=== PATIENT | male | born 1985 | race American Indian/Alaskan Native ===

== ENCOUNTER 2018-03-30 17:56 | Emergency (ER) | payer SELFPAY ==
[2018-03-30 18:06] VITALS: BP 162/85
--- NOTE | 2018-03-30 20:55 | Emergency Department Report ---
ED Extremity Problem HPI - General Chief complaint: Extremity Injury, Lower Stated complaint: (L) LEG PAIN Time Seen by Provider: 03/30/18 20:24 Source: patient Mode of arrival: Ambulatory Limitations: No Limitations - History of Present Illness Initial comments: Patient reports that he has left leg pain and states that started in his buttocks and moved his left hamstring 2 days. He said this is going on for 2 years and it comes and goes. Denies any history of back injury or back pain. He said he feels like spasm. Pain is 10 out of 10 when it is there and intermittent. Denies any numbness or tingling. Denies any loss of bowel or bladder function. No medication taken anything over seen a doctor for the problem. MD Complaint: extremity pain Onset/Timin -: year(s) Location: left, lower extremity -: No myalgia, Yes arthralgia, No fever, No associated chest pain Radiation: none Severity scale (0 -10): 10 Quality: aching Consistency: intermittent Improves with: nothing Worsens with: nothing Associated Symptoms: arthralgias. denies: chest pain, shortness of breath, fever, myalgias, rash - Related Data Previous Rx's Medication Instructions Recorded Last Taken Type Fluconazole [Diflucan] 150 mg PO QDAY #2 tablet 04/24/13 Unknown Rx Hydrocodone Bit/Acetaminophen 1 each PO Q4-6H #10 tablet 04/24/13 Unknown Rx [Lortab 5-500 Tablet] Ibuprofen [Motrin] 800 mg PO TID PRN #25 tablet 04/24/13 Unknown Rx Sulfamethoxazole/Trimethoprim 1 each PO BID #28 tablet 04/24/13 Unknown Rx [Bactrim DS] Ibuprofen [Motrin] 800 mg PO Q8HR PRN #15 tablet 03/30/18 Unknown Rx Allergies Allergy/AdvReac Type Severity Reaction Status Date / Time No Known Allergies Allergy Verified 03/30/18 22:03 ED Review of Systems ROS: Stated complaint: (L) LEG PAIN Other details as noted in HPI Constitutional: denies: chills, fever Eyes: denies: eye pain, eye discharge Respiratory: denies: cough, shortness of breath, SOB with exertion, SOB at rest , stridor, wheezing Cardiovascular: denies: chest pain, palpitations, edema, syncope Gastrointestinal: denies: abdominal pain, nausea, vomiting, diarrhea Genitourinary: denies: urgency, dysuria Musculoskeletal: arthralgia. denies: back pain, joint swelling, myalgia Skin: denies: rash, lesions Neurological: denies: headache, weakness, numbness, paresthesias, confusion, abnormal gait, vertigo ED Past Medical Hx - Past Medical History Previous Medical History?: Yes Hx Asthma: Yes Additional medical history: crohns - Surgical History Past Surgical History?: Yes Hx Appendectomy: Yes - Family History Family history: hypertension - Social History Smoking Status: Current Every Day Smoker Substance Use Type: None - Medications Home Medications: Home Medications Medication Instructions Recorded Confirmed Last Taken Type Fluconazole [Diflucan] 150 mg PO QDAY #2 tablet 04/24/13 Unknown Rx Hydrocodone Bit/Acetaminophen 1 each PO Q4-6H #10 tablet 04/24/13 Unknown Rx [Lortab 5-500 Tablet] Ibuprofen [Motrin] 800 mg PO TID PRN #25 tablet 04/24/13 Unknown Rx Sulfamethoxazole/Trimethoprim 1 each PO BID #28 tablet 04/24/13 Unknown Rx [Bactrim DS] Ibuprofen [Motrin] 800 mg PO Q8HR PRN #15 tablet 03/30/18 Unknown Rx ED Physical Exam - General Limitations: No Limitations General appearance: alert, in no apparent distress - Head Head exam: Present: atraumatic, normocephalic, normal inspection - Eye Eye exam: Present: normal appearance, PERRL, EOMI Pupils: Present: normal accommodation - ENT ENT exam: Present: normal exam, normal orophraynx, mucous membranes moist, TM's normal bilaterally, normal external ear exam - Neck Neck exam: Present: normal inspection, full ROM, other (no C-spine tenderness). Absent: tenderness, lymphadenopathy - Respiratory Respiratory exam: Present: normal lung sounds bilaterally. Absent: respiratory distress, chest wall tenderness - Cardiovascular Cardiovascular Exam: Present: regular rate, normal rhythm, normal heart sounds. Absent: systolic murmur, diastolic murmur - GI/Abdominal GI/Abdominal exam: Present: soft, normal bowel sounds. Absent: distended, tenderness - Extremities Exam Extremities exam: Present: normal inspection, full ROM, normal capillary refill , other (No cce. + 2 pulses in all extremities, no neurovascular compromise). Absent: tenderness, pedal edema, joint swelling, calf tenderness - Back Exam Back exam: Present: normal inspection, full ROM, other (ambulates without any difficulties). Absent: tenderness, CVA tenderness (R), CVA tenderness (L), muscle spasm, paraspinal tenderness, vertebral tenderness, rash noted - Expanded Back Exam Expanded Back exam: Absent: saddle anesthesia Back exam: Negative Straight Leg Raising: Left, Right - Neurological Exam Neurological exam: Present: alert, oriented X3, normal gait, reflexes normal. Absent: motor sensory deficit - Psychiatric Psychiatric exam: Present: normal affect, normal mood - Skin Skin exam: Present: warm, dry, intact, normal color. Absent: rash ED Course Vital Signs 03/30/18 18:03 Temperature 99.0 F Pulse Rate 70 Respiratory 18 Rate Blood Pressure 162/85 O2 Sat by Pulse 99 Oximetry - Reevaluation(s) Reevaluation #1: 03/30/18 22:03 Patient given Motrin 800 mg by mouth for pain. ED Medical Decision Making - Medical Decision Making This is a 33-year-old male here report that he does have an left lower extremity pain 2 years and he came back 2 days ago. He has not been seen by . Denies any injury or any problem with his back. Assessment/plan Arthralgia, left lower extremity-physical findings is normal. Patient given Motrin 800 mg by mouth and referred to orthopedic doctor and also some outside Medical Center to follow-up in 2 days. I discussed the patient diagnosis and treatment plan. I discussed the exam to follow-up with orthopedic doctor. Patient voiced understanding. I referred him to some outside Medical Center as he does not have a primary care doctor and also to Dr. Goel or [facility] to manage his chronic leg pain. Patient discharged home with prescription for Motrin, vital signs are stable he is afebrile Critical care attestation.: If time is entered above; I have spent that time in minutes in the direct care of this critically ill patient, excluding procedure time. ED Disposition Clinical Impression: Arthralgia of left lower leg Disposition: - TO HOME OR SELFCARE Is pt being admited?: No Does the pt Need Aspirin: No Condition: Stable Instructions: Arthralgia (ED) Additional Instructions: While up with Dr. Goel and [facility] in 2 days Motrin as prescribed If your symptoms worsen, return to the emergency room Prescriptions: Ibuprofen [Motrin] 800 mg PO Q8HR PRN #15 tablet PRN Reason: pain Referrals: LUIS GOEL MD [Staff Physician] - 04/01/18 [facility] [Outside] - 04/01/18 Forms: Work/School Release Form(ED)
[2018-03-30] MEDS ORDERED: MOTRIN PO ONE (22:00)
[2018-03-30] MEDS ORDERED: MOTRIN ONE (22:04)
== END 2018-03-30 22:38 | disposition home or self-care (01) ==
LOC: ED 17:56
DX: M79.605 Pain in left leg (principal); R25.2 Cramp and spasm; J45.909 Unspecified asthma, uncomplicated; K50.90 Crohn's disease, unspecified, without complications; Z90.49 Acquired absence of other specified parts of digestive tract; F17.200 Nicotine dependence, unspecified, uncomplicated; Z79.899 Other long term (current) drug therapy
CPT/HCPCS: 99282

== ENCOUNTER 2020-05-26 23:06 | Emergency (ER) | payer SELFPAY ==
--- NOTE | 2020-05-27 01:57 | Emergency Department Report ---
ED General Adult HPI - General Chief complaint: Rectal Pain Stated complaint: HEMORRHOIDS Time Seen by Provider: 05/27/20 00:52 Source: patient Mode of arrival: Ambulatory Limitations: No Limitations - History of Present Illness Initial comments: 35-year-old -[place] male patient with history of Crohn's disease presents with complaints of hemorrhoid pain x3 days. He states there is itching and pain especially with bowel movement. He denies any fever/chills/sweats, hematochezia/melena, diarrhea, or abdominal pain. He admits to recent const ipation and straining, however states he is now having normal bowel movements. Patient states naproxen is not helping with his pain. Severity scale (0 -10): 3 - Related Data Previous Rx's Medication Instructions Recorded Last Taken Type Fluconazole [Diflucan] 150 mg PO QDAY #2 tablet 04/24/13 Unknown Rx Hydrocodone Bit/Acetaminophen 1 each PO Q4-6H #10 tablet 04/24/13 Unknown Rx [Lortab 5-500 Tablet] Ibuprofen [Motrin] 800 mg PO TID PRN #25 tablet 04/24/13 Unknown Rx Sulfamethoxazole/Trimethoprim 1 each PO BID #28 tablet 04/24/13 Unknown Rx [Bactrim DS] Ibuprofen [Motrin] 800 mg PO Q8HR PRN #15 tablet 03/30/18 Unknown Rx Acetaminophen/Codeine [Tylenol 1 tab PO Q8H PRN #6 tab 05/27/20 Unknown Rx /Codeine # 3 tab] Docusate Sodium [Colace] 100 mg PO BID PRN #20 capsule 05/27/20 Unknown Rx Hydrocortisone [Anusol-Hc 2.5% TOP 30 gm RC TID PRN 7 Days #1 05/27/20 Unknown Rx CREAM] cream..g. hydroCHLOROthiazide [Hctz] 12.5 mg PO QDAY 30 Days #30 capsule 05/27/20 Unknown Rx Allergies Allergy/AdvReac Type Severity Reaction Status Date / Time No Known Allergies Allergy Verified 03/30/18 22:03 ED Review of Systems ROS: Stated complaint: HEMORRHOIDS Other details as noted in HPI Constitutional: denies: chills, fever, malaise ENT: denies: throat pain Respiratory: denies: cough, shortness of breath Cardiovascular: denies: chest pain, edema Gastrointestinal: denies: abdominal pain, diarrhea, constipation, hematochezia Genitourinary: denies: urgency, dysuria Musculoskeletal: denies: joint swelling Skin: denies: change in color Neurological: denies: headache, weakness, numbness, paresthesias, vertigo ED Past Medical Hx - Past Medical History Hx Asthma: Yes Additional medical history: crohns - Surgical History Hx Appendectomy: Yes - Social History Smoking Status: Current Every Day Smoker Substance Use Type: None - Medications Home Medications: Home Medications Medication Instructions Recorded Confirmed Last Taken Type Fluconazole [Diflucan] 150 mg PO QDAY #2 tablet 04/24/13 Unknown Rx Hydrocodone Bit/Acetaminophen 1 each PO Q4-6H #10 tablet 04/24/13 Unknown Rx [Lortab 5-500 Tablet] Ibuprofen [Motrin] 800 mg PO TID PRN #25 tablet 04/24/13 Unknown Rx Sulfamethoxazole/Trimethoprim 1 each PO BID #28 tablet 04/24/13 Unknown Rx [Bactrim DS] Ibuprofen [Motrin] 800 mg PO Q8HR PRN #15 tablet 03/30/18 Unknown Rx Acetaminophen/Codeine [Tylenol 1 tab PO Q8H PRN #6 tab 05/27/20 Unknown Rx /Codeine # 3 tab] Docusate Sodium [Colace] 100 mg PO BID PRN #20 capsule 05/27/20 Unknown Rx Hydrocortisone [Anusol-Hc 2.5% TOP 30 gm RC TID PRN 7 Days #1 05/27/20 Unknown Rx CREAM] cream..g. hydroCHLOROthiazide [Hctz] 12.5 mg PO QDAY 30 Days #30 capsule 05/27/20 Unknown Rx ED Physical Exam - General Limitations: No Limitations General appearance: alert, in no apparent distress - Head Head exam: Present: atraumatic, normocephalic - Eye Eye exam: Absent: scleral icterus - ENT ENT exam: Present: mucous membranes moist - Neck Neck exam: Present: normal inspection - Respiratory Respiratory exam: Present: normal lung sounds bilaterally. Absent: respiratory distress - Cardiovascular Cardiovascular Exam: Present: regular rate, normal rhythm - GI/Abdominal GI/Abdominal exam: Present: soft. Absent: tenderness - Rectal Rectal exam: Present: hemorrhoids (External, nonthrombosed) - Extremities Exam Extremities exam: Present: normal inspection - Neurological Exam Neurological exam: Present: alert, oriented X3, normal gait - Psychiatric Psychiatric exam: Present: normal affect, normal mood - Skin Skin exam: Present: warm, dry, intact, normal color. Absent: rash, cyanosis, diaphoretic, erythema, ecchymosis ED Course Vital Signs 05/27/20 00:17 Temperature 97.8 F Pulse Rate 75 Respiratory 18 Rate O2 Sat by Pulse 98 Oximetry ED Medical Decision Making - Medical Decision Making 35-year-old -[place] male patient with history of Crohn's disease presents with complaints of hemorrhoid pain x3 days. He states there is itching and pain especially with bowel movement. He denies any fever/chills/sweats, hematochezia/melena, diarrhea, or abdominal pain. He admits to recent constipation and straining, however states he is now having normal bowel movements. Patient states naproxen is not helping with his pain. External nonthrombosed hemorrhoids noted on exam. Will treat with Anusol and pain medication. Recommend follow-up with GI. Patient blood pressure noted to be elevated and was also elevated at his last visit on 03/30/2020. He denies prior history of hypertension and states he has not follow-up with a primary care doctor concerning this. Will start patient on HCTZ 12.5 mg and discussed in detail importance of follow-up with a PCP within 2 to 3 days for further evaluation of his blood pressure. Patient verbalized understanding. He is well-appearing and stable for discharge home peer Critical care attestation.: If time is entered above; I have spent that time in minutes in the direct care of this critically ill patient, excluding procedure time. ED Disposition Clinical Impression: External hemorrhoids High blood pressure Qualifiers: Hypertension type: essential hypertension Qualified Code(s): I10 - Essential (primary) hypertension Disposition: - TO HOME OR SELFCARE Is pt being admited?: No Condition: Stable Instructions: Hemorrhoids, Managing Your Hypertension, Hypertension, Adult, Hypertension (ED) Prescriptions: Hydrocortisone [Anusol-Hc 2.5% TOP CREAM] 30 gm RC TID PRN 7 Days #1 cream..g. PRN Reason: pain/itching from hemorrhoids Docusate Sodium [Colace] 100 mg PO BID PRN #20 capsule PRN Reason: Constipation hydroCHLOROthiazide [Hctz] 12.5 mg PO QDAY 30 Days #30 capsule Acetaminophen/Codeine [Tylenol /Codeine # 3 tab] 1 tab PO Q8H PRN #6 tab PRN Reason: Pain , Severe (7-10) Referrals: [facility] [Provider Group] - 2-3 Days
[2020-05-27 02:04] VITALS: BP 150/89
== END 2020-05-27 02:02 | disposition home or self-care (01) ==
LOC: ED 23:06
DX: K64.4 Residual hemorrhoidal skin tags (principal); I10 Essential (primary) hypertension; J45.909 Unspecified asthma, uncomplicated; K50.90 Crohn's disease, unspecified, without complications; F17.200 Nicotine dependence, unspecified, uncomplicated; Z90.49 Acquired absence of other specified parts of digestive tract; Z79.899 Other long term (current) drug therapy
CPT/HCPCS: 99282

== ENCOUNTER 2021-09-01 20:08 | Emergency (ER) | payer SELFPAY ==
[2021-09-01] MEDS ORDERED: KETOROLAC 30 MG/1 ML INJ ONE (20:24)
[2021-09-01] MEDS ORDERED: KETOROLAC 60 MG/2 ML INJ IM ONE (20:30)
[2021-09-01] MEDS ORDERED: ETOMIDATE 20 MG/10 ML INJ IV ONE (20:54)
--- NOTE | 2021-09-01 20:54 | XRay Report ---
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 Signer Name: Isra Rivas MD Signed: 09/01/2021 8:50 PM Workstation Name: [id number]
[2021-09-01] MEDS ORDERED: SODIUM CHLORIDE 0.9% 1000 ML 1,000 ML IV ONE (21:09)
[2021-09-01] MEDS ORDERED: HYDROmorphone 1 MG/1 ML INJ IV ONE (21:09)
--- NOTE | 2021-09-01 23:24 | XRay Report ---
LEFT SHOULDER 3 VIEW(S) INDICATION / CLINICAL INFORMATION: post reduction. COMPARISON: Left shoulder x-ray 09/01/2021; 2040 hours FINDINGS: BONES / JOINT(S): Interval reduction of anterior dislocation left glenohumeral joint. No significant arthritis. SOFT TISSUES: No significant abnormality. ADDITIONAL FINDINGS: None. IMPRESSION: 1. Interval reduction of previously demonstrated anterior dislocation. Signer Name: Allen Irving II, MD Signed: 09/01/2021 11:20 PM Workstation Name: [id number]
--- NOTE | 2021-09-01 23:46 | Emergency Department Report ---
ED Upper Extremity Inj HPI - General Chief Complaint: Extremity Injury, Upper Stated Complaint: SHOULDER PAIN Time Seen by Provider: 09/01/21 20:54 Source: patient Mode of arrival: Ambulatory Limitations: No Limitations - History of Present Illness Complaint: Injury to:: left -: Sudden, days(s) Other Extremity Injury: Shoulder: Left Severity scale (0 -10): 5 Improves With: none - Related Data Previous Rx's Medication Instructions Recorded Last Taken Type Fluconazole [Diflucan] 150 mg PO QDAY #2 tablet 04/24/13 Unknown Rx Hydrocodone Bit/Acetaminophen 1 each PO Q4-6H #10 tablet 04/24/13 Unknown Rx [Lortab 5-500 Tablet] Ibuprofen [Motrin] 800 mg PO TID PRN #25 tablet 04/24/13 Unknown Rx Sulfamethoxazole/Trimethoprim 1 each PO BID #28 tablet 04/24/13 Unknown Rx [Bactrim DS] Ibuprofen [Motrin] 800 mg PO Q8HR PRN #15 tablet 03/30/18 Unknown Rx Acetaminophen/Codeine [Tylenol 1 tab PO Q8H PRN #6 tab 05/27/20 Unknown Rx /Codeine # 3 tab] Docusate Sodium [Colace] 100 mg PO BID PRN #20 capsule 05/27/20 Unknown Rx Hydrocortisone [Anusol-Hc 2.5% TOP 30 gm RC TID PRN 7 Days #1 05/27/20 Unknown Rx CREAM] cream..g. hydroCHLOROthiazide [Hctz] 12.5 mg PO QDAY 30 Days #30 capsule 05/27/20 Unknown Rx Allergies Allergy/AdvReac Type Severity Reaction Status Date / Time No Known Allergies Allergy Verified 03/30/18 22:03 ED Review of Systems ROS: Stated complaint: SHOULDER PAIN Other details as noted in HPI Constitutional: denies: chills, fever Eyes: denies: eye pain, eye discharge, vision change ENT: denies: ear pain, throat pain Respiratory: denies: cough, shortness of breath, wheezing Cardiovascular: denies: chest pain, palpitations Endocrine: no symptoms reported Gastrointestinal: denies: abdominal pain, nausea, diarrhea Genitourinary: denies: urgency, dysuria Musculoskeletal: denies: back pain, joint swelling, arthralgia Skin: denies: rash, lesions Neurological: denies: headache, weakness, paresthesias Psychiatric: denies: anxiety, depression Hematological/Lymphatic: denies: easy bleeding, easy bruising ED Past Medical Hx - Past Medical History Previous Medical History?: Yes Hx Hypertension: No Hx CVA: No Hx Asthma: Yes Additional medical history: crohns - Surgical History Past Surgical History?: Yes Hx Appendectomy: Yes - Social History Smoking Status: Current Every Day Smoker Substance Use Type: None - Medications Home Medications: Home Medications Medication Instructions Recorded Confirmed Last Taken Type Fluconazole [Diflucan] 150 mg PO QDAY #2 tablet 04/24/13 Unknown Rx Hydrocodone Bit/Acetaminophen 1 each PO Q4-6H #10 tablet 04/24/13 Unknown Rx [Lortab 5-500 Tablet] Ibuprofen [Motrin] 800 mg PO TID PRN #25 tablet 04/24/13 Unknown Rx Sulfamethoxazole/Trimethoprim 1 each PO BID #28 tablet 04/24/13 Unknown Rx [Bactrim DS] Ibuprofen [Motrin] 800 mg PO Q8HR PRN #15 tablet 03/30/18 Unknown Rx Acetaminophen/Codeine [Tylenol 1 tab PO Q8H PRN #6 tab 05/27/20 Unknown Rx /Codeine # 3 tab] Docusate Sodium [Colace] 100 mg PO BID PRN #20 capsule 05/27/20 Unknown Rx Hydrocortisone [Anusol-Hc 2.5% TOP 30 gm RC TID PRN 7 Days #1 05/27/20 Unknown Rx CREAM] cream..g. hydroCHLOROthiazide [Hctz] 12.5 mg PO QDAY 30 Days #30 capsule 05/27/20 Unknown Rx ED Physical Exam - General Limitations: No Limitations General appearance: alert, in no apparent distress - Head Head exam: Present: atraumatic, normocephalic - Eye Eye exam: Present: normal appearance - ENT ENT exam: Present: mucous membranes moist - Neck Neck exam: Present: normal inspection - Respiratory Respiratory exam: Present: normal lung sounds bilaterally. Absent: respiratory distress - Cardiovascular Cardiovascular Exam: Present: regular rate, normal rhythm. Absent: systolic murmur, diastolic murmur, rubs, gallop - GI/Abdominal GI/Abdominal exam: Present: soft, normal bowel sounds - Rectal Rectal exam: Present: deferred - Extremities Exam Extremities exam: Present: normal inspection - Expanded Upper Extremity Exam Left Shoulder Exam: Present: tenderness, deformity, dislocation - Back Exam Back exam: Present: normal inspection - Neurological Exam Neurological exam: Present: alert, oriented X3 - Psychiatric Psychiatric exam: Present: normal affect, normal mood - Skin Skin exam: Present: warm, dry, intact, normal color. Absent: rash ED Course Vital Signs 09/01/21 20:17 Temperature 98.2 F Pulse Rate 61 Respiratory 20 Rate Blood Pressure 101/61 [Right] O2 Sat by Pulse 100 Oximetry - Orthopedic Fracture Reduction Fracture #1 Consent Obtained: written consent Time Out Performed: Yes Side: left Fracture Reduction Location: humerus Analgesia: moderate sedation Post Reduction X-rays Demonstrate: anatomical reduction Post-Reduction Neuro Exam: intact Post-Reduction Vascular Exam: intact Splint Applied: Yes Patient Tolerated Procedure: well Critical care attestation.: If time is entered above; I have spent that time in minutes in the direct care of this critically ill patient, excluding procedure time. ED Disposition Clinical Impression: Dislocation of left shoulder joint Disposition: 01 HOME / SELF CARE / HOMELESS Is pt being admited?: No Does the pt Need Aspirin: No Condition: Stable Instructions: Shoulder Dislocation, How to Use a Shoulder Immobilizer Referrals: YOMI HALL MD [Primary Care Provider] - 3-5 Days EVI CROW MD [Staff Physician] - 3-5 Days
[2021-09-02 02:33] VITALS: BP 159/95
== END 2021-09-02 02:00 | disposition home or self-care (01) ==
LOC: ED 20:08
DX: S43.005A Unspecified dislocation of left shoulder joint, initial encounter (principal); X58.XXXA Exposure to other specified factors, initial encounter; Y93.89 Activity, other specified; Y92.89 Other specified places as the place of occurrence of the external cause; Y99.8 Other external cause status; F17.200 Nicotine dependence, unspecified, uncomplicated; Z90.89 Acquired absence of other organs
CPT/HCPCS: 23650; 73030; 96361; 96372; 96374; 96375; 99283; J1170; J1885; J3490; J7030; Q0162